=== PATIENT | male | born 1995 | race Hispanic/Latino ===

== ENCOUNTER 2025-02-12 13:59 | Emergency (ER) | payer OTHER ==
[2025-02-12 14:42] LABS: Glucose, Urine (Dipstick) Negative (Negative); Leukocyte Negative (Negative); Protein, Urine (Dipstick) 100 mg/dL (Neg-Trace); Specific Gravity, Urine 1.025 (1.005-1.030)
[2025-02-12 14:56] LABS: CAUTI Indications for Culture Dysuria,urgency,freq; RBC/HPF 0-3 HPF (0-3); WBC/HPF None Seen HPF (0-3)
[2025-02-12 14:57] LABS: Bacteria/HPF Rare-Few HPF (None Seen); Sperm/HPF 1+ HPF (None Seen)
[2025-02-12 14:59] LABS: Urine Culture Reflex No No
[2025-02-12] MEDS ORDERED: cefTRIAXone (ROCEPHIN) 500 MG VIAL ONE (15:06)
[2025-02-13 00:56] LABS: Chlam.trachomatis by PCR,Urine Not Detected (NotDetected); GC N.gonorrhoeae PCR,UrineVOID Not Detected (NotDetected)
== END 2025-02-12 15:25 | disposition home or self-care (01) ==
LOC: BURERS 13:59
DX: N50.812 Left testicular pain (principal); F17.210 Nicotine dependence, cigarettes, uncomplicated; F17.290 Nicotine dependence, other tobacco product, uncomplicated
CPT/HCPCS: 81001; 87491; 87591; 96372; 99284; J0696